=== PATIENT | female | born 1985 | race Caucasian/White ===

== ENCOUNTER 2021-06-07 12:13 | Day surgery (SDC) | payer BC ==
[~2021-06-07 12:13] MED LIST: Lactated Ringers 1,000 ML IV SCH; Midazolam 1 MG/ML 2 ML SDV ONE; Propofol 200 MG/20 ML SDV ONE; Sodium Chloride 0.9% 10 ML Syringe FLUSH PRN
[2021-06-07] MEDS ORDERED: Propofol 200 MG/20 ML SDV ONE ×2 (13:35→13:54)
[2021-06-07] MEDS ORDERED: Midazolam 1 MG/ML 2 ML SDV ONE (13:35)
[2021-06-07] MEDS ORDERED: Ondansetron 4 MG/2 ML SDV ONE (13:35)
[2021-06-07 16:05] VITALS: BP 115/68; PULSE 76
== END 2021-06-07 14:50 | disposition home or self-care (01) ==
LOC: LL.SDS 12:13
PROVIDERS: ATTEND Surgery
DX: K62.1 Rectal polyp (principal); K59.09 Other constipation; Z87.891 Personal history of nicotine dependence
CPT/HCPCS: 00812; 81025; J2250; J2405; J2704; J7120